=== PATIENT | female | born 1985 | race Caucasian/White ===

== ENCOUNTER 2016-09-27 20:26 | Emergency (ER) | payer MEDICARE, MEDICAID ==
[2016-09-27] MEDS ORDERED: Ibuprofen 400 MG TAB ONE (23:00)
== END 2016-09-27 23:17 | disposition home or self-care (01) ==
LOC: ER 20:26
DX: S93.432A Sprain of tibiofibular ligament of left ankle, initial encounter (principal); S90.02XA Contusion of left ankle, initial encounter; F17.210 Nicotine dependence, cigarettes, uncomplicated